=== PATIENT | male | born 1965 | race African-American/Black ===

== ENCOUNTER 2024-05-24 01:23 | Emergency (ER) | payer MEDICAID ==
[~2024-05-24] VITALS: Ht 172.7 cm; Wt 107.0 kg
[2024-05-24 01:36] VITALS: O2SAT 95
[2024-05-24 01:51] VITALS: BP 168/105; PULSE 105; RESP 16; TEMP 98.2; O2SAT 95
== END 2024-05-24 02:47 | disposition left against medical advice (07) ==
LOC: ER 01:32
DX: R07.81 Pleurodynia (principal); M54.2 Cervicalgia; M54.9 Dorsalgia, unspecified; V89.2XXA Person injured in unspecified motor-vehicle accident, traffic, initial encounter; X58.XXXA Exposure to other specified factors, initial encounter; Y93.89 Activity, other specified; Y92.89 Other specified places as the place of occurrence of the external cause; Y99.8 Other external cause status